=== PATIENT | female | born 1995 | race Caucasian/White ===

== ENCOUNTER → 2022-07-13 | Outpatient (CLI) | payer BC ==
[~2022-07-13] MED LIST: ACET325; ACET325 PO; ALBU90OI61 INH; AMOCLA500 PO; AMOX500 PO; BC PILLS; CEPH500 PO; HYDACE5 PO; NAPR500 PO; SULTRIDS PO
== END | disposition home or self-care (01) ==
LOC: LAB SHORT 09:20 → LAB 09:20
DX: J02.9 Acute pharyngitis, unspecified (principal)
CPT/HCPCS: 87081